=== PATIENT | male | born 1955 | race Caucasian/White ===

== ENCOUNTER 2017-12-15 06:52 | Day surgery (SDC) | END 2017-12-15 11:14 | disposition home or self-care (01) ==

== ENCOUNTER 2018-12-15 11:03 | Emergency (ER) | payer BC ==
[~2018-12-15] VITALS: Ht 172.7 cm; Wt 100.3 kg
[2018-12-15 11:18] VITALS: Ht 172.7 cm; Wt 100.3 kg
[2018-12-15] MEDS ORDERED: FER325 PO (13:39)
[2018-12-15] MEDS ORDERED: TERA2CAP3 PO (13:40)
[2018-12-15] MEDS ORDERED: ERGO500013 PO (13:40)
[2018-12-15] MEDS ORDERED: METF500T24 PO (13:41)
[2018-12-15] MEDS ORDERED: CLON-379 PO (13:41)
[2018-12-15] MEDS ORDERED: AMLO5TAB4 PO (13:41)
[2018-12-15] MEDS ORDERED: ATOR20TA38 PO (13:42)
[2018-12-15] MEDS ORDERED: METO-448 PO (13:42)
[2018-12-15] MEDS ORDERED: FENO134C PO (13:43)
[2018-12-15] MEDS ORDERED: HYDR-3671 PO (13:43)
[2018-12-15] MEDS ORDERED: NITROGLYCERIN 2% 1 GM OINT PKT TD STA (14:05)
[2018-12-15] MEDS ORDERED: ASPIRIN 325 MG TAB PO STA (14:05)
--- NOTE | 2018-12-15 15:35 | ERD ---
ER Documentation Chief Complaint Chief Complaint CP x yesterday HPI This is 63-year-old male with a history of hypertension, high cholesterol, diabetes she is complaining of substernal chest pressure over the past couple of days. He said the pain was initially exertional pain. He said he can walk more than 10 feet without getting chest pressure and difficulty breathing. He says today his pain is becoming apparent when he is at rest. Pain is a pressure sensation without radiation. He gets a bit short of breath, no nausea, no dizziness, no palpitations, no diaphoresis. He has no prior cardiac history or work-up. He is also complaining of some swelling in his legs over the past couple of days ROS All systems reviewed and are negative except as per history of present illness. Medications Home Meds Reported Medications Hydralazine Hcl* (Hydralazine Hcl*) 25 Mg Tab, 25 MG PO BID PRN for BLOOD PRESSURE SUPPORT, #60 TAB 12/15/18 Fenofibrate, Micronized (Fenofibrate) 134 Mg Capsule, 134 MG PO DAILY, CAP 12/15/18 Metoprolol Tartrate* (Lopressor*) 25 Mg Tab, 25 MG PO BID, #60 TAB 12/15/18 Atorvastatin Calcium* (Atorvastatin Calcium*) 20 Mg Tablet, 20 MG PO QHS, #30 TAB 12/15/18 Amlodipine Besylate* (Norvasc*) 5 Mg Tablet, 5 MG PO DAILY, TAB 12/15/18 Metformin Hcl* (Metformin Hcl*) 500 Mg Tablet, 500 MG PO WITH BREAKFAST DINNE, #60 TAB 12/15/18 Clonidine Hcl* (Clonidine Hcl*) 0.1 Mg Tab, 0.1 MG PO Q8 PRN for BLOOD PRESSURE SUPPORT, TAB 12/15/18 Ergocalciferol (Vitamin D2) (VITAMIN D2) 50,000 Unit Capsule, 03341 UNIT PO EVERY THURSDAY, CAP 12/15/18 Terazosin Hcl* (Terazosin Hcl*) 2 Mg Capsule, 2 MG PO HS, CAP 12/15/18 Ferrous Sulfate* (Ferrous Sulfate*) 325 Mg Tabec, 325 MG PO BID, TAB 12/15/18 Discontinued Reported Medications [None] No Conflict Check 12/15/17 Allergies Allergies: Coded Allergies: No Known Allergies (Verified Allergy, Mild, 12/15/18) PMhx/Soc History of Surgery: Yes Anesthesia Reaction: No Hx Neurological Disorder: No Hx Respiratory Disorders: No Hx Cardiac Disorders: No Hx Psychiatric Problems: No Hx Miscellaneous Medical Probl: Yes (HIGH CHOLESTEROL, HTN) Hx Alcohol Use: No Hx Substance Use: No Hx Tobacco Use: No Smoking Status: Never smoker FmHx Family History: No coronary disease Physical Exam Vitals Vital Signs Date Temp Pulse Resp B/P (MAP) Pulse Ox O2 O2 Flow FiO2 Time Delivery Rate 12/15/18 2 14:00 12/15/18 93 22 167/100 97 Nasal 13:30 (122) Cannula 12/15/18 97.6 100 22 180/95 96 11:18 (123) Physical Exam Const: Well-developed, well-nourished Head: Atraumatic, normocephalic Eyes: Normal Conjunctiva, PERRLA, EOMI, normal sclera, no nystagmus ENT: Normal External Ears, Nose and Mouth, moist mucus membranes. Neck: Full range of motion. No meningismus, no lymphadenopathy. Resp: Creased breath sounds in the left base no increased work of breathing Cardio: Regular rate and rhythm, no murmurs, S1 S2 present Abd: Soft, non tender x 4, non distended. Normal bowel sounds, no guarding or rebound, no pulsitile abdominal masses or bruits Skin: No petechiae or rashes, no ecchymosis , no maculopapular rash Back: No midline or flank tenderness Ext: No cyanosis, +12 edema, FROM x 4, normal inspection, neurovascularly intact x 4 Neur: Awake and alert, STR 5/5 x 4, sensation intact x 4, no focal findings, cerebellum intact Psych: Normal Mood and Affect Result Diagram: 12/15/18 1408 12/15/18 1408 Results 24 hrs Laboratory Tests Test 12/15/18 14:08 White Blood Count 6.8 10^3/ul Red Blood Count 4.86 10^6/ul Hemoglobin 13.1 g/dl Hematocrit 41.5 % Mean Corpuscular Volume 85.4 fl Mean Corpuscular Hemoglobin 27.0 pg Mean Corpuscular Hemoglobin Concent 31.6 g/dl Red Cell Distribution Width 15.4 % Platelet Count 162 10^3/UL Mean Platelet Volume 11.3 fl Immature Granulocytes % 0.400 % Neutrophils % 71.0 % Lymphocytes % 18.6 % Monocytes % 6.9 % Eosinophils % 2.4 % Basophils % 0.7 % Nucleated Red Blood Cells % 0.0 /100WBC Immature Granulocytes # 0.030 10^3/ul Neutrophils # 4.8 10^3/ul Lymphocytes # 1.3 10^3/ul Monocytes # 0.5 10^3/ul Eosinophils # 0.2 10^3/ul Basophils # 0.1 10^3/ul Nucleated Red Blood Cells # 0.0 10^3/ul Prothrombin Time 13.8 Sec Prothrombin Time Ratio 1.1 INR International Normalized Ratio 1.05 Activated Partial Thromboplast Time 30.5 Sec Sodium Level 141 mmol/L Potassium Level 4.3 mmol/L Chloride Level 103 mmol/L Carbon Dioxide Level 28 mmol/L Anion Gap 10 Blood Urea Nitrogen 16 mg/dl Creatinine 0.98 mg/dl Est Glomerular Filtrat Rate mL/min > 60 mL/min Glucose Level 126 mg/dl Calcium Level 9.5 mg/dl Total Bilirubin 1.2 mg/dl Direct Bilirubin 0.00 mg/dl Indirect Bilirubin 1.2 mg/dl Aspartate Amino Transf (AST/SGOT) 44 IU/L Alanine Aminotransferase (ALT/SGPT) 38 IU/L Alkaline Phosphatase 82 IU/L Troponin I 0.036 ng/ml B-Type Natriuretic Peptide 419 PG/ML Total Protein 7.7 g/dl Albumin 4.4 g/dl Globulin 3.30 g/dl Albumin/Globulin Ratio 1.33 Current Medications Medications Dose Sig/Kevan Start Time Status Last (Trade) Ordered Route PRN Stop Time Admin Dose Reason Admin Aspirin 325 mg ONCE STAT 12/15/18 DC 12/15/18 (Aspirin) PO 14:05 12/15/18 14:27 14:06 1 inch ONCE STAT 12/15/18 DC 12/15/18 Nitroglycerin TD 14:05 12/15/18 14:28 14:06 (Nitroglyceri n 2% Oint) Procedures/MDM MR #: [id number] DOS: 12/15/18 1405 Ordering MD: JENNIFER BRUNSON DO Location: E/R Room/Bed: PROCEDURE: XR Chest. CLINICAL INDICATION: shortness of breath TECHNIQUE: Single portable view of the chest was obtained COMPARISON: CR CHEST 09/02/2015 FINDINGS: There is moderate cardiomegaly. There is moderate pulmonary vascular congestion. There are bilateral perihilar and lower lobe increased interstitial changes. There is a moderate left pleural effusion.. There is no pneumothorax. RPTAT: AA IMPRESSION: Moderate cardiomegaly with pulmonary vascular congestion. Moderate left pleural effusion. .Venkata Camilo MD, Date Time Electronically viewed and signed by .Venkata Camilo MD, on 12/15/2018 14:26 .S/ CC: JENNIFER BRUNSON DO [id number] EKG: Rate/Rhythm: Normal sinus rhythm, slight ST depression in the infer ior leads, anterior Q waves QRS, ST, QT: NORMAL SD, QRS, QT] Impression: Abnormal EKG Cardiac Admit MDM: Patient's symptoms are concerning for cardiac cause will require inpatient workup and continuous monitoring. Further w/u for ischemia, arrhythmia, PE or dissection will be deferred to the inpatient team. Departure Diagnosis: Primary Impression: Chest pain Chest pain type: unspecified Qualified Codes: R07.9 - Chest pain, unspecified Additional Impression: Pleural effusion, left Condition: Stable JENNIFER BRUNSON DO December 15, 2018 15:35
[2018-12-15 18:14] VITALS: BP 156/89; PULSE 92; RESP 20
== END 2018-12-15 18:18 | disposition home or self-care (01) ==
LOC: E/R 11:03
DX: J90 Pleural effusion, not elsewhere classified (principal); I10 Essential (primary) hypertension; E11.9 Type 2 diabetes mellitus without complications; Z79.84 Long term (current) use of oral hypoglycemic drugs
CPT/HCPCS: 36415; 71045; 80053; 83880; 84484; 85025; 85610; 85730; 93005; Z7502; Z7610